=== PATIENT | male | born 1940 | race Caucasian/White ===

== ENCOUNTER → 2016-10-13 | Outpatient (CLI) | payer MEDICARE, OTHER ==
[~2016-10-13] MED LIST: [UNRECOGNIZED DRUG - OTHER]
== END | disposition home or self-care (01) ==
LOC: Rad HDHVI 13:42
PROVIDERS: ATTEND Internal Medicine Cardiovascular Disease
DX: I51.7 Cardiomegaly (principal); E78.00 Pure hypercholesterolemia, unspecified
CPT/HCPCS: 93306; 93880

== ENCOUNTER → 2016-10-19 | Outpatient (CLI) | payer MEDICARE, OTHER ==
[~2016-10-19] VITALS: Ht 175.3 cm; Wt 68.0 kg
[2016-10-19 09:57] LABS: Urine RBC None Seen /hpf (0 - 3)
[2016-10-19 12:25] LABS: Basophils # (auto) 0 uL; Basophils % (auto) 0.7 % (0.0-2.0); CONDITION Y; Eosinophils # (auto) 0.2 uL; Eosinophils % (auto) 3.3 % (0.0-7.0); Hemoglobin 14.6 g/dL (13.5-17.5); Lymphocytes # (auto) 1.6 uL; Lymphocytes % (auto) 21.4 % (10.0-50.0); Mean Corpuscular Hemoglobin 33.2 pg (28.0-32.0); Mean Corpuscular Hgb Conc. 33.8 g/dL (32.0-36.0); Mean Corpuscular Volume 98.4 fL (80.0-100.0); Mean Platelet Volume 9.5 fL (7.4-10.4); Monocytes # (auto) 0.7 uL; Monocytes % (auto) 9.3 % (0.0-12.0); Neutrophils # (auto) 4.8 uL; Neutrophils % (auto) 65.3 % (37.0-80.0); Platelet Count (auto) 287 10^3/uL (140-450); Red Cell Distribution Width 13.1 % (11.6-16.0); White Blood Cell 7.3 10^3/uL (4.4-10.8)
[2016-10-19 13:02] LABS: Albumin 3.4 g/dL (3.4-5.0); BUN/Creatinine Ratio 20.3; Bilirubin, Total 0.5 mg/dL (0.2-1.0); Calcium 9.3 mg/dL (8.5-10.1); Potassium 4.4 mmol/L (3.5-5.1); Total Protein 7.4 g/dL (6.4-8.2)
[2016-10-19 13:39] LABS: Urine Bilirubin Negative (Negative); Urine Blood Negative /uL (Negative); Urine Color Yellow (Yellow); Urine Glucose Normal (Normal); Urine Ketone Negative (Negative); Urine Nitrite Negative (Negative); Urine Squamous Epithelial Cell FEW /hpf (<5); Urine Urobilinogen Normal (Negative); Urine pH 6.5 (5.0-8.0)
== END | disposition home or self-care (01) ==
LOC: Rad HDHVI 07:58
PROVIDERS: ATTEND Internal Medicine Cardiovascular Disease
DX: I10 Essential (primary) hypertension (principal); E78.00 Pure hypercholesterolemia, unspecified; E11.9 Type 2 diabetes mellitus without complications; R97.20 Elevated prostate specific antigen [PSA]; R53.81 Other malaise; E03.9 Hypothyroidism, unspecified; D64.9 Anemia, unspecified; E55.9 Vitamin D deficiency, unspecified; N39.0 Urinary tract infection, site not specified; D51.9 Vitamin B12 deficiency anemia, unspecified; K74.1 Hepatic sclerosis
CPT/HCPCS: 36415; 78452; 80053; 80061; 81001; 82306; 82607; 83036; 84402; 84403; 84439; 84443; 85025; 93017; 96374; A9500

== ENCOUNTER → 2017-06-30 | Outpatient (CLI) | payer MEDICARE ==
[~2017-06-30] MED LIST changes: +IOHEXOL 350 MG/ML 100ML IJ ONE
[2017-06-30 08:45] VITALS: BP 119/60
[2017-06-30 09:25] VITALS: BP 132/59
[2017-06-30 12:24] LABS: Basophils # (auto) 0 uL; Basophils % (auto) 0.7 % (0.0-2.0); Eosinophils # (auto) 0.2 uL; Eosinophils % (auto) 3.4 % (0.0-7.0); Hematocrit 45.2 % (41.0-53.0); Hemoglobin 15.3 g/dL (13.5-17.5); Lymphocytes # (auto) 1.5 uL; Lymphocytes % (auto) 25.8 % (10.0-50.0); Mean Corpuscular Hemoglobin 33.5 pg (28.0-32.0); Mean Corpuscular Hgb Conc. 33.8 g/dL (32.0-36.0); Mean Corpuscular Volume 99.1 fL (80.0-100.0); Monocytes # (auto) 0.7 uL; Monocytes % (auto) 11.3 % (0.0-12.0); Neutrophils # (auto) 3.4 uL; Neutrophils % (auto) 58.8 % (37.0-80.0); Nucleated Red Blood Cells % 0.7 %; Platelet Count (auto) 247 10^3/uL (140-450); Red Blood Cells 4.56 10^6/uL (4.5-5.90); Red Cell Distribution Width 13.1 % (11.8-14.3); White Blood Cell 5.8 10^3/uL (4.4-10.8)
[2017-06-30 12:29] LABS: Urine Blood Negative /uL (Negative)
[2017-06-30 12:42] LABS: Albumin 3.4 g/dL (3.4-5.0); BUN/Creatinine Ratio 16.1; Bilirubin, Total 0.5 mg/dL (0.2-1.0); Calcium 8.1 mg/dL (8.5-10.1); Potassium 4.4 mmol/L (3.5-5.1); Total Protein 7.5 g/dL (6.4-8.2)
[2017-06-30 13:07] LABS: Free T4 (Free Thyroxine) 1.08 ng/dL (0.89-1.76); Prostate Specific Antigen 0.61 ng/mL (0.0-4.0)
== END | disposition home or self-care (01) ==
LOC: Rad HDHVI 08:20
PROVIDERS: ATTEND Internal Medicine Cardiovascular Disease
DX: I70.0 Atherosclerosis of aorta (principal); E78.5 Hyperlipidemia, unspecified; D64.9 Anemia, unspecified; I10 Essential (primary) hypertension; E03.9 Hypothyroidism, unspecified; E55.9 Vitamin D deficiency, unspecified; E11.9 Type 2 diabetes mellitus without complications; R53.81 Other malaise; R97.20 Elevated prostate specific antigen [PSA]; D51.9 Vitamin B12 deficiency anemia, unspecified; N39.0 Urinary tract infection, site not specified; K74.1 Hepatic sclerosis
CPT/HCPCS: 36415; 75635; 80053; 80061; 81003; 82306; 82565; 82607; 83036; 84153; 84403; 84439; 84443; 85025; G0463; Q9967

== ENCOUNTER → 2018-05-30 | Outpatient (CLI) | payer MEDICARE ==
[~2018-05-30] MED LIST changes: -IOHEXOL 350 MG/ML 100ML IJ ONE
[2018-05-30 12:10] LABS: Urine Blood Negative /uL (Negative); Urine Specific Gravity 1.007 (1.001-1.035)
[2018-05-30 12:11] LABS: Basophils # (auto) 0 uL; Basophils % (auto) 0.5 % (0.0-2.0); Eosinophils # (auto) 0.2 uL; Eosinophils % (auto) 2.7 % (0.0-7.0); Hematocrit 48.8 % (41.0-53.0); Hemoglobin 16.6 g/dL (13.5-17.5); Lymphocytes # (auto) 1.9 uL; Lymphocytes % (auto) 28.1 % (10.0-50.0); Mean Corpuscular Hemoglobin 33.6 pg (28.0-32.0); Mean Corpuscular Volume 98.6 fL (80.0-100.0); Monocytes # (auto) 0.9 uL; Monocytes % (auto) 12.6 % (0.0-12.0); Neutrophils # (auto) 3.8 uL; Neutrophils % (auto) 56.1 % (37.0-80.0); Nucleated Red Blood Cells % 0.7 %; Platelet Count (auto) 297 10^3/uL (140-450); Red Blood Cells 4.95 10^6/uL (4.5-5.90); White Blood Cell 6.8 10^3/uL (4.4-10.8)
[2018-05-30 12:25] LABS: Potassium 4.2 mmol/L (3.5-5.1)
[2018-05-30 12:37] LABS: Albumin 3.9 g/dL (3.4-5.0); Bilirubin, Total 0.7 mg/dL (0.2-1.0); Total Protein 8.4 g/dL (6.4-8.2)
[2018-05-30 12:38] LABS: Free T4 (Free Thyroxine) 1.47 ng/dL (0.89-1.76); Prostate Specific Antigen 0.83 ng/mL (0.0-4.0)
== END | disposition home or self-care (01) ==
LOC: LAB 08:42
PROVIDERS: ATTEND Internal Medicine Cardiovascular Disease
DX: E55.9 Vitamin D deficiency, unspecified (principal); E03.9 Hypothyroidism, unspecified; E11.9 Type 2 diabetes mellitus without complications; C61 Malignant neoplasm of prostate; E29.1 Testicular hypofunction; D51.9 Vitamin B12 deficiency anemia, unspecified; N39.0 Urinary tract infection, site not specified
CPT/HCPCS: 36415; 80053; 80061; 81003; 82306; 82607; 83036; 84153; 84403; 84439; 84443; 85025; 87086

== ENCOUNTER 2019-04-18 18:51 | Emergency (ER) | payer MEDICARE ==
[~2019-04-18] VITALS: Ht 175.3 cm; Wt 63.5 kg
[2019-04-18 21:49] VITALS: BP 140/76
== END 2019-04-18 21:57 | disposition home or self-care (01) ==
LOC: ER 18:51
DX: M19.011 Primary osteoarthritis, right shoulder (principal); Z91.041 Radiographic dye allergy status
CPT/HCPCS: 73030

== ENCOUNTER → 2019-04-19 | Outpatient (CLI) | payer MEDICARE ==
[~2019-04-19] MED LIST changes: +KETOROLAC TROMETH 60MG/2ML VIAL IM ONE; +KETOROLAC TROMETH 60MG/2ML VIAL ONE
[2019-04-19 09:00] VITALS: BP 120/64
[2019-04-19 10:01] VITALS: BP 130/64
--- NOTE | 2019-04-19 10:01 | NUR ---
[facility] Discharge Instructions See e-MAR for any mediations given with this visit. Patient education given on disease process. Patient verbalized understanding. Previous labs reviewed. Patient discharged in stable condition with after care instructions and follow up appointment. NOTE TORADOL IM R GLUTE ADMIN BY MEG CROSS. EKG REVIEWED BY TRENTON MILAN
[2019-04-19 12:17] LABS: Albumin 3.5 g/dL (3.4-5.0); Calcium 9.5 mg/dL (8.5-10.1); Magnesium 2.6 mg/dL (1.6-2.6); Potassium 4.4 mmol/L (3.5-5.1)
[2019-04-19 12:20] LABS: BUN/Creatinine Ratio 15.8; Bilirubin, Total 0.4 mg/dL (0.2-1.0); Total Protein 8.1 g/dL (6.4-8.2)
[2019-04-19 12:22] LABS: Basophils # (auto) 0.1 uL; Basophils % (auto) 0.9 % (0.0-2.0); Eosinophils # (auto) 0.3 uL; Eosinophils % (auto) 5.1 % (0.0-7.0); Hemoglobin 16.4 g/dL (13.5-17.5); Lymphocytes # (auto) 1.6 uL; Lymphocytes % (auto) 24.8 % (10.0-50.0); Mean Corpuscular Hemoglobin 33.6 pg (28.0-32.0); Mean Corpuscular Hgb Conc. 34.2 g/dL (32.0-36.0); Mean Corpuscular Volume 98.1 fL (80.0-100.0); Monocytes % (auto) 14.8 % (0.0-12.0); Neutrophils # (auto) 3.5 uL; Neutrophils % (auto) 54.4 % (37.0-80.0); Nucleated Red Blood Cells % 0.2 %; Platelet Count (auto) 245 10^3/uL (140-450); Red Blood Cells 4.89 10^6/uL (4.5-5.90); Red Cell Distribution Width 12.9 % (11.8-14.3); White Blood Cell 6.5 10^3/uL (4.4-10.8)
== END | disposition home or self-care (01) ==
LOC: CHF HDHVI 09:03
PROVIDERS: ATTEND Internal Medicine Cardiovascular Disease
DX: R07.89 Other chest pain (principal); M25.511 Pain in right shoulder; I50.9 Heart failure, unspecified; M19.011 Primary osteoarthritis, right shoulder; E11.9 Type 2 diabetes mellitus without complications
CPT/HCPCS: 36415; 80053; 83735; 83880; 85025; 93005; 96372; G0463; J1885

== ENCOUNTER → 2019-05-22 | Outpatient (CLI) | payer MEDICARE ==
[~2019-05-22] MED LIST changes: -KETOROLAC TROMETH 60MG/2ML VIAL IM ONE; -KETOROLAC TROMETH 60MG/2ML VIAL ONE
== END | disposition home or self-care (01) ==
LOC: Rad HDHVI 10:26
PROVIDERS: ATTEND Internal Medicine Cardiovascular Disease
DX: M25.461 Effusion, right knee (principal); M25.561 Pain in right knee
CPT/HCPCS: 73700

== ENCOUNTER → 2019-09-01 | Outpatient (CLI) | payer MEDICARE ==
[~2019-09-01] MED LIST changes: +IOHEXOL 350 MG/ML 100ML IJ ONE
[2019-09-01 10:30] VITALS: BP 124/58
--- NOTE | 2019-09-01 10:30 | NUR ---
PT TO [facility]F CLINIC FOR CT PT ARRIVED TO [facility] FOR CT OF CHEST. PATIENT ALERT AND AWAKE WITH EVEN AND UNLABORED RESPIRATIONS, NO S/S SOB/DISTRESS AT THIS TIME. WILL CARRY OUT MD ORDERS.
--- NOTE | 2019-09-01 10:40 | NUR ---
IV insertion IV access obtained BY TRENTON MILAN, via clean sterile technique by inserting [20] gauge catheter at [L AC] after [1] attempt(s). IV secured properly. No trauma to site. Patient tolerated procedure well.
--- NOTE | 2019-09-01 12:10 | NUR ---
IV removal IV DC'd BY TRENTON MILAN with sterile technique, catheter fully intact. Pressure dressing applied to site. Patient tolerated procedure well.
[2019-09-01 12:26] VITALS: BP 111/49
--- NOTE | 2019-09-01 12:26 | NUR ---
[facility] Discharge Instructions See e-MAR for any mediations given with this visit. Patient education given on disease process. Patient verbalized understanding. Previous labs reviewed. Patient discharged in stable condition with after care instructions and follow up appointment. NOTES PT EDUCATED TO INCREASE ORAL HYDRATION OVER THE NEXT 24 HOURS. PT VERBALIZED UNDERSTANDING.
== END | disposition home or self-care (01) ==
LOC: Rad HDHVI 10:20
PROVIDERS: ATTEND Internal Medicine Cardiovascular Disease
DX: K57.10 Diverticulosis of small intestine without perforation or abscess without bleeding (principal); I25.10 Atherosclerotic heart disease of native coronary artery without angina pectoris; R94.4 Abnormal results of kidney function studies; R13.10 Dysphagia, unspecified; K21.9 Gastro-esophageal reflux disease without esophagitis; R06.00 Dyspnea, unspecified; M41.84 Other forms of scoliosis, thoracic region; M41.86 Other forms of scoliosis, lumbar region; M46.09 Spinal enthesopathy, multiple sites in spine
CPT/HCPCS: 36415; 71260; 82565; G0463; Q9967

== ENCOUNTER → 2020-08-05 | Outpatient (CLI) | payer MEDICARE ==
[~2020-08-05] MED LIST changes: -IOHEXOL 350 MG/ML 100ML IJ ONE
[2020-08-05 12:02] LABS: Basophils # (auto) 0.1 10 ^3/uL (0-0.2); Basophils % (auto) 0.8 % (0.0-2.0); Eosinophils # (auto) 0.2 10 ^3/uL (0-0.8); Eosinophils % (auto) 2.5 % (0.0-7.0); Hematocrit 43.1 % (41.0-53.0); Hemoglobin 14.7 g/dL (13.5-17.5); Lymphocytes # (auto) 2.3 10 ^3/uL (0.4-5.4); Lymphocytes % (auto) 29.9 % (10.0-50.0); Mean Corpuscular Hemoglobin 33.2 pg (28.0-32.0); Mean Corpuscular Hgb Conc. 34.1 g/dL (32.0-36.0); Mean Corpuscular Volume 97.5 fL (80.0-100.0); Monocytes # (auto) 0.8 10 ^3/uL (0-1.3); Monocytes % (auto) 10.5 % (0.0-12.0); Neutrophils # (auto) 4.4 10 ^3/uL (1.6-8.6); Neutrophils % (auto) 56.3 % (37.0-80.0); Nucleated Red Blood Cells % 0.1 %; Platelet Count (auto) 272 10^3/uL (140-450); Red Blood Cells 4.42 10^6/uL (4.5-5.90); Red Cell Distribution Width 12.7 % (11.8-14.3); White Blood Cell 7.8 10^3/uL (4.4-10.8)
[2020-08-05 12:08] LABS: Urine Blood Negative /uL (Negative); Urine Specific Gravity 1.018 (1.001-1.035)
[2020-08-05 12:33] LABS: Potassium 3.7 mmol/L (3.5-5.1)
[2020-08-05 12:46] LABS: Albumin 3.4 g/dL (3.4-5.0); BUN/Creatinine Ratio 20.4; Bilirubin, Direct 0.2 mg/dL (0-0.2); Bilirubin, Total 0.6 mg/dL (0.2-1.0); Calcium 8.8 mg/dL (8.5-10.1); Total Protein 7.5 g/dL (6.4-8.2)
== END | disposition home or self-care (01) ==
LOC: LAB 10:19
PROVIDERS: ATTEND Internal Medicine Cardiovascular Disease
DX: C61 Malignant neoplasm of prostate (principal); D51.3 Other dietary vitamin B12 deficiency anemia; I10 Essential (primary) hypertension; E11.9 Type 2 diabetes mellitus without complications; E55.9 Vitamin D deficiency, unspecified; D64.9 Anemia, unspecified; R00.2 Palpitations; R53.1 Weakness; R30.0 Dysuria
CPT/HCPCS: 36415; 80048; 80061; 80076; 81003; 82306; 83036; 84153; 84403; 84443; 85025

== ENCOUNTER → 2020-08-07 | Outpatient (CLI) | payer MEDICARE | END | disposition home or self-care (01) | LOC: Rad HDHVI 09:45 | PROVIDERS: ATTEND Internal Medicine Cardiovascular Disease | DX: I65.21 Occlusion and stenosis of right carotid artery (principal); I10 Essential (primary) hypertension; E78.5 Hyperlipidemia, unspecified | CPT/HCPCS: 93880 ==

== ENCOUNTER → 2020-08-26 | Outpatient (CLI) | payer MEDICARE ==
[~2020-08-26] VITALS: Ht 175.3 cm; Wt 65.8 kg
== END | disposition home or self-care (01) ==
LOC: Rad HDHVI 12:39
PROVIDERS: ATTEND Internal Medicine Cardiovascular Disease
DX: I10 Essential (primary) hypertension (principal); I73.9 Peripheral vascular disease, unspecified; E78.5 Hyperlipidemia, unspecified; Z82.49 Family history of ischemic heart disease and other diseases of the circulatory system
CPT/HCPCS: 78452; 93017; 96374; A9500

== ENCOUNTER → 2021-10-01 | Outpatient (CLI) | payer MEDICARE ==
[2021-10-01 11:50] LABS: Eosinophils # (auto) 0.1 10 ^3/uL (0-0.8); Hematocrit 50.3 % (41.0-53.0); Lymphocytes # (auto) 1.6 10 ^3/uL (0.4-5.4); Mean Corpuscular Hgb Conc. 33.1 g/dL (32.0-36.0); Monocytes # (auto) 0.9 10 ^3/uL (0-1.3); Neutrophils # (auto) 4.1 10 ^3/uL (1.6-8.6); Nucleated Red Blood Cells % 0.1 %; Urine Blood Negative /uL (Negative); Urine Specific Gravity 1.015 (1.001-1.035); White Blood Cell 6.7 10^3/uL (4.4-10.8)
[2021-10-01 11:52] LABS: Basophils # (auto) 0 10 ^3/uL (0-0.2); Basophils % (auto) 0.6 % (0.0-2.0); Eosinophils % (auto) 1.8 % (0.0-7.0); Hemoglobin 16.6 g/dL (13.5-17.5); Lymphocytes % (auto) 23.5 % (10.0-50.0); Mean Corpuscular Hemoglobin 33.7 pg (28.0-32.0); Monocytes % (auto) 13.5 % (0.0-12.0); Neutrophils % (auto) 60.6 % (37.0-80.0); Red Blood Cells 4.93 10^6/uL (4.5-5.90); Red Cell Distribution Width 13.2 % (11.8-14.3)
[2021-10-01 12:01] LABS: Albumin 3.2 g/dL (3.4-5.0); Calcium 8.9 mg/dL (8.5-10.1); Potassium 4.4 mmol/L (3.5-5.1)
[2021-10-01 12:06] LABS: BUN/Creatinine Ratio 15.3; Bilirubin, Total 0.8 mg/dL (0.2-1.0); Total Protein 7.3 g/dL (6.4-8.2)
[2021-10-01 12:50] LABS: Free T4 (Free Thyroxine) 1.38 ng/dL (0.89-1.76); Prostate Specific Antigen 1.18 ng/mL (0.0-4.0)
== END | disposition home or self-care (01) ==
LOC: LAB 10:37
PROVIDERS: ATTEND Internal Medicine Cardiovascular Disease
DX: D51.3 Other dietary vitamin B12 deficiency anemia (principal); D64.9 Anemia, unspecified; E11.9 Type 2 diabetes mellitus without complications; E55.9 Vitamin D deficiency, unspecified; I10 Essential (primary) hypertension; R00.2 Palpitations; R53.1 Weakness; R30.0 Dysuria; C61 Malignant neoplasm of prostate
CPT/HCPCS: 36415; 80053; 80061; 81003; 82306; 82607; 83036; 84153; 84403; 84439; 84443; 85025

== ENCOUNTER → 2021-10-13 | Outpatient (CLI) | payer MEDICARE | END | disposition home or self-care (01) | LOC: Rad HDHVI 10:42 | PROVIDERS: ATTEND Internal Medicine Cardiovascular Disease | DX: I08.1 Rheumatic disorders of both mitral and tricuspid valves (principal); I10 Essential (primary) hypertension; R06.02 Shortness of breath | CPT/HCPCS: 93306 ==

== ENCOUNTER → 2021-10-20 | Outpatient (CLI) | payer MEDICARE | END | disposition home or self-care (01) | LOC: Rad HDHVI 09:04 | PROVIDERS: ATTEND Internal Medicine Cardiovascular Disease | DX: I65.21 Occlusion and stenosis of right carotid artery (principal); I73.9 Peripheral vascular disease, unspecified; I10 Essential (primary) hypertension | CPT/HCPCS: 93880 ==

== ENCOUNTER → 2022-07-06 | Outpatient (CLI) | payer MEDICARE | END | disposition home or self-care (01) | LOC: Rad HDHVI 10:40 | PROVIDERS: ATTEND Internal Medicine Cardiovascular Disease | DX: R06.02 Shortness of breath (principal) | CPT/HCPCS: 71046 ==

== ENCOUNTER → 2022-07-14 | Outpatient (CLI) | payer MEDICARE | END | disposition home or self-care (01) | LOC: Rad HDHVI 07:56 | PROVIDERS: ATTEND Internal Medicine Cardiovascular Disease | DX: I08.1 Rheumatic disorders of both mitral and tricuspid valves (principal); I11.9 Hypertensive heart disease without heart failure | CPT/HCPCS: 93306 ==

== ENCOUNTER → 2023-09-27 | Outpatient (CLI) | payer MEDICARE | END | disposition home or self-care (01) | LOC: Rad HDHVI 15:16 | PROVIDERS: ATTEND Internal Medicine Cardiovascular Disease | DX: I10 Essential (primary) hypertension (principal) | CPT/HCPCS: 93880 ==

== ENCOUNTER → 2023-11-01 | Outpatient (CLI) | payer MEDICARE | END | disposition home or self-care (01) | LOC: Rad HDHVI 12:21 | PROVIDERS: ATTEND Internal Medicine Cardiovascular Disease | DX: R41.82 Altered mental status, unspecified (principal) | CPT/HCPCS: 70450 ==

== ENCOUNTER → 2023-11-17 | Outpatient (CLI) | payer MEDICARE ==
[2023-11-17 16:31] VITALS: BP 138/84; PULSE 76
[2023-11-17 16:40] VITALS: BP 131/82; PULSE 84
== END | disposition home or self-care (01) ==
LOC: CHF HDHVI 15:16
PROVIDERS: ATTEND Internal Medicine Cardiovascular Disease
DX: I25.118 Atherosclerotic heart disease of native coronary artery with other forms of angina pectoris (principal); Z95.818 Presence of other cardiac implants and grafts
CPT/HCPCS: G0166

== ENCOUNTER → 2023-11-22 | Outpatient (CLI) | payer MEDICARE ==
[2023-11-22 16:44] VITALS: BP 138/80; PULSE 63
[2023-11-22 16:45] VITALS: BP 133/83; PULSE 74
== END | disposition home or self-care (01) ==
LOC: CHF HDHVI 15:13
PROVIDERS: ATTEND Internal Medicine Cardiovascular Disease
DX: I25.118 Atherosclerotic heart disease of native coronary artery with other forms of angina pectoris (principal)
CPT/HCPCS: G0166

== ENCOUNTER → 2023-11-24 | Outpatient (CLI) | payer MEDICARE ==
[2023-11-24 16:20] VITALS: BP 123/88; PULSE 85
[2023-11-24 16:32] VITALS: BP 123/79; PULSE 79
== END | disposition home or self-care (01) ==
LOC: CHF HDHVI 15:19
PROVIDERS: ATTEND Internal Medicine Cardiovascular Disease
DX: I25.118 Atherosclerotic heart disease of native coronary artery with other forms of angina pectoris (principal)
CPT/HCPCS: G0166

== ENCOUNTER → 2023-11-29 | Outpatient (CLI) | payer MEDICARE ==
[2023-11-29 16:29] VITALS: BP 126/70; PULSE 75
[2023-11-29 16:37] VITALS: BP 126/80; PULSE 77
== END | disposition home or self-care (01) ==
LOC: CHF HDHVI 15:20
PROVIDERS: ATTEND Internal Medicine Cardiovascular Disease
DX: I25.118 Atherosclerotic heart disease of native coronary artery with other forms of angina pectoris (principal)
CPT/HCPCS: G0166

== ENCOUNTER → 2023-12-01 | Outpatient (CLI) | payer MEDICARE ==
[2023-12-01 16:20] VITALS: BP 126/79; PULSE 67
[2023-12-01 16:27] VITALS: BP 122/77; PULSE 68
== END | disposition home or self-care (01) ==
LOC: CHF HDHVI 15:15
PROVIDERS: ATTEND Internal Medicine Cardiovascular Disease
DX: I25.118 Atherosclerotic heart disease of native coronary artery with other forms of angina pectoris (principal)
CPT/HCPCS: G0166

== ENCOUNTER → 2023-12-15 | Outpatient (CLI) | payer MEDICARE ==
[2023-12-15 16:41] VITALS: BP_SYST 129; BP_SYST 132; BP_DIAS 80; BP_DIAS 82; PULSE 73; PULSE 79
== END | disposition home or self-care (01) ==
LOC: CHF HDHVI 15:14
PROVIDERS: ATTEND Internal Medicine Cardiovascular Disease
DX: I25.118 Atherosclerotic heart disease of native coronary artery with other forms of angina pectoris (principal); Z95.820 Peripheral vascular angioplasty status with implants and grafts
CPT/HCPCS: G0166

== ENCOUNTER → 2023-12-27 | Outpatient (CLI) | payer MEDICARE ==
[2023-12-27 15:55] VITALS: BP 128/83; PULSE 86
[2023-12-27 15:59] VITALS: BP 130/81; PULSE 85
== END | disposition home or self-care (01) ==
LOC: CHF HDHVI 14:32
PROVIDERS: ATTEND Internal Medicine Cardiovascular Disease
DX: I25.118 Atherosclerotic heart disease of native coronary artery with other forms of angina pectoris (principal)
CPT/HCPCS: G0166

== ENCOUNTER → 2023-12-29 | Outpatient (CLI) | payer MEDICARE ==
[2023-12-29 16:02] VITALS: BP_SYST 126; BP_SYST 128; BP_DIAS 75; BP_DIAS 78; PULSE 75; PULSE 87
== END | disposition home or self-care (01) ==
LOC: CHF HDHVI 14:50
PROVIDERS: ATTEND Internal Medicine Cardiovascular Disease
DX: I25.118 Atherosclerotic heart disease of native coronary artery with other forms of angina pectoris (principal)
CPT/HCPCS: G0166

== ENCOUNTER → 2024-01-03 | Outpatient (CLI) | payer MEDICARE ==
[2024-01-03 16:12] VITALS: BP 138/88; PULSE 76
[2024-01-03 16:13] VITALS: BP 142/81; PULSE 67
[2024-01-05 16:33] VITALS: BP 139/89; PULSE 84
[2024-01-05 16:34] VITALS: BP 130/80; PULSE 86
[2024-01-06 09:09] VITALS: BP 138/88; PULSE 76
[2024-01-06 09:10] VITALS: BP 142/81; PULSE 67
== END | disposition home or self-care (01) ==
LOC: CHF HDHVI 15:04
PROVIDERS: ATTEND Internal Medicine Cardiovascular Disease
DX: I25.118 Atherosclerotic heart disease of native coronary artery with other forms of angina pectoris (principal)
CPT/HCPCS: G0166

== ENCOUNTER → 2024-01-05 | Outpatient (CLI) | payer MEDICARE ==
[2024-01-05 16:39] VITALS: BP_SYST 130; BP_SYST 139; BP_DIAS 80; BP_DIAS 89; PULSE 84; PULSE 86
== END | disposition home or self-care (01) ==
LOC: CHF HDHVI 15:19
PROVIDERS: ATTEND Internal Medicine Cardiovascular Disease
DX: I25.118 Atherosclerotic heart disease of native coronary artery with other forms of angina pectoris (principal)
CPT/HCPCS: G0166

== ENCOUNTER → 2024-01-10 | Outpatient (CLI) | payer MEDICARE ==
[2024-01-10 16:17] VITALS: BP 122/80; PULSE 87
[2024-01-10 16:18] VITALS: BP 131/81; PULSE 76
== END | disposition home or self-care (01) ==
LOC: CHF HDHVI 14:50
PROVIDERS: ATTEND Internal Medicine Cardiovascular Disease
DX: I25.118 Atherosclerotic heart disease of native coronary artery with other forms of angina pectoris (principal)
CPT/HCPCS: G0166

== ENCOUNTER → 2024-01-17 | Outpatient (CLI) | payer MEDICARE ==
[2024-01-17 16:08] VITALS: BP 138/83; PULSE 76
[2024-01-17 16:09] VITALS: BP 140/86; PULSE 74
== END | disposition home or self-care (01) ==
LOC: CHF HDHVI 14:47
PROVIDERS: ATTEND Internal Medicine Cardiovascular Disease
DX: I25.118 Atherosclerotic heart disease of native coronary artery with other forms of angina pectoris (principal)
CPT/HCPCS: G0166

== ENCOUNTER → 2024-01-24 | Outpatient (CLI) | payer MEDICARE ==
[2024-01-24 16:06] VITALS: BP_SYST 133; BP_SYST 135; BP_DIAS 76; BP_DIAS 82; PULSE 76; PULSE 81
== END | disposition home or self-care (01) ==
LOC: CHF HDHVI 14:39
PROVIDERS: ATTEND Internal Medicine Cardiovascular Disease
DX: I25.118 Atherosclerotic heart disease of native coronary artery with other forms of angina pectoris (principal); Z95.9 Presence of cardiac and vascular implant and graft, unspecified
CPT/HCPCS: G0166

== ENCOUNTER → 2024-01-26 | Outpatient (CLI) | payer MEDICARE ==
[2024-01-26 15:19] VITALS: BP 138/78; PULSE 74
[2024-01-26 15:20] VITALS: BP 133/85; PULSE 87
== END | disposition home or self-care (01) ==
LOC: CHF HDHVI 13:34
PROVIDERS: ATTEND Internal Medicine Cardiovascular Disease
DX: I25.118 Atherosclerotic heart disease of native coronary artery with other forms of angina pectoris (principal); Z95.9 Presence of cardiac and vascular implant and graft, unspecified
CPT/HCPCS: G0166

== ENCOUNTER 2024-01-27 09:03 | Emergency (ER) | payer MEDICARE ==
[~2024-01-27] VITALS: Ht 177.8 cm; Wt 68.1 kg
[2024-01-27 09:46] LABS: Basophils # (auto) 0.1 10 ^3/uL (0-0.2); Basophils % (auto) 0.8 % (0.0-2.0); Eosinophils # (auto) 0.2 10 ^3/uL (0-0.8); Eosinophils % (auto) 2.2 % (0.0-7.0); Hematocrit 49.5 % (41.0-53.0); Hemoglobin 16.6 g/dL (13.5-17.5); Lymphocytes # (auto) 1.6 10 ^3/uL (0.4-5.4); Lymphocytes % (auto) 16.7 % (10.0-50.0); Mean Corpuscular Hemoglobin 32.7 pg (28.0-32.0); Mean Corpuscular Hgb Conc. 33.6 g/dL (32.0-36.0); Mean Corpuscular Volume 97.3 fL (80.0-100.0); Monocytes # (auto) 1.4 10 ^3/uL (0-1.3); Monocytes % (auto) 14.7 % (0.0-12.0); Neutrophils # (auto) 6.4 10 ^3/uL (1.6-8.6); Neutrophils % (auto) 65.6 % (37.0-80.0); Nucleated Red Blood Cells % 0.1 %; Platelet Count (auto) 256 10^3/uL (140-450); Red Blood Cells 5.09 10^6/uL (4.5-5.90); Red Cell Distribution Width 14.7 % (11.8-14.3); White Blood Cell 9.8 10^3/uL (4.4-10.8)
[2024-01-27 09:53] LABS: Anion Gap 5 (5-15); Carbon Dioxide 31 mmol/L (20-31); Chloride 101 mmol/L (98-107); Potassium 4.7 mmol/L (3.5-5.1); Sodium 137 mmol/L (136-145)
[2024-01-27 09:54] LABS: Calcium 10.3 mg/dL (8.7-10.4)
[2024-01-27 09:59] LABS: BUN/Creatinine Ratio 15.1 (10.0-20.0); Blood Urea Nitrogen 19 mg/dL (9-23); Glucose 88 mg/dL (74-106)
[2024-01-27 10:38] LABS: Urine Bacteria None Seen /hpf (None Seen)
[2024-01-27 10:50] VITALS: PULSE 73; RESP 16; O2SAT 97
[2024-01-27 10:55] LABS: Urine Blood Negative /uL (Negative); Urine Clarity Clear (Clear); Urine Color Yellow (Yellow); Urine Protein, UAD Negative (Negative); Urine Specific Gravity 1.012 (1.001-1.035); Urine Urobilinogen Normal (Negative); Urine WBC <1 /hpf (0 - 3); Urine pH 7.5 (5.0-9.0)
[2024-01-27 10:57] LABS: Amphetamine Screen, Urine Neg (NEGATIVE); Barbiturate Scree,Urine Neg (NEGATIVE); Benzodiazephine Screen, Urine Neg (NEGATIVE); Cannabinoid Screen, Urine Neg (NEGATIVE); Cocaine Screen, Urine Neg (NEGATIVE); Opiate Scree,Urine Neg (NEGATIVE); Phencyclidine Screen, Urine Neg (NEGATIVE)
[2024-01-27 12:17] VITALS: BP 132/65; PULSE 70; RESP 18; TEMP 97.5; O2SAT 100
[2024-01-27 16:22] VITALS: BP 129/61; PULSE 62; RESP 18; TEMP 97.7; O2SAT 98
== END 2024-01-27 16:34 | disposition home or self-care (01) ==
LOC: ER 09:03
DX: G45.9 Transient cerebral ischemic attack, unspecified (principal); I48.91 Unspecified atrial fibrillation; I10 Essential (primary) hypertension; E07.9 Disorder of thyroid, unspecified; Z91.041 Radiographic dye allergy status; Z79.899 Other long term (current) drug therapy
CPT/HCPCS: 36415; 70450; 80048; 80307; 80320; 81001; 82962; 84484; 85025; 93005

== ENCOUNTER → 2024-01-31 | Outpatient (CLI) | payer MEDICARE ==
[2024-01-31 14:42] VITALS: BP 128/79; PULSE 70
[2024-01-31 14:45] VITALS: BP 130/81; PULSE 88
== END | disposition home or self-care (01) ==
LOC: CHF HDHVI 11:01
PROVIDERS: ATTEND Internal Medicine Cardiovascular Disease
DX: I25.118 Atherosclerotic heart disease of native coronary artery with other forms of angina pectoris (principal)
CPT/HCPCS: G0166

== ENCOUNTER → 2024-02-07 | Outpatient (CLI) | payer MEDICARE ==
[2024-02-07 16:06] VITALS: BP 129/86; PULSE 67
[2024-02-07 16:07] VITALS: BP 122/86; PULSE 84
== END | disposition home or self-care (01) ==
LOC: CHF HDHVI 14:40
PROVIDERS: ATTEND Internal Medicine Cardiovascular Disease
DX: I25.118 Atherosclerotic heart disease of native coronary artery with other forms of angina pectoris (principal)
CPT/HCPCS: G0166

== ENCOUNTER → 2024-02-09 | Outpatient (CLI) | payer MEDICARE ==
[2024-02-09 16:11] VITALS: BP 128/78; PULSE 84
[2024-02-09 16:12] VITALS: BP 131/80; PULSE 78
== END | disposition home or self-care (01) ==
LOC: CHF HDHVI 14:58
PROVIDERS: ATTEND Internal Medicine Cardiovascular Disease
DX: I25.118 Atherosclerotic heart disease of native coronary artery with other forms of angina pectoris (principal)
CPT/HCPCS: G0166

== ENCOUNTER → 2024-02-16 | Outpatient (CLI) | payer MEDICARE ==
[2024-02-16 16:07] VITALS: BP 136/88; PULSE 79
[2024-02-16 16:08] VITALS: BP 138/84; PULSE 80
== END | disposition home or self-care (01) ==
LOC: CHF HDHVI 14:21
PROVIDERS: ATTEND Internal Medicine Cardiovascular Disease
DX: I25.118 Atherosclerotic heart disease of native coronary artery with other forms of angina pectoris (principal)
CPT/HCPCS: G0166

== ENCOUNTER → 2024-02-21 | Outpatient (CLI) | payer MEDICARE ==
[2024-02-21 14:50] VITALS: BP 126/82; PULSE 80
[2024-02-21 14:58] VITALS: BP 128/78; PULSE 87
== END | disposition home or self-care (01) ==
LOC: CHF HDHVI 13:43
PROVIDERS: ATTEND Internal Medicine Cardiovascular Disease
DX: I25.118 Atherosclerotic heart disease of native coronary artery with other forms of angina pectoris (principal); I25.5 Ischemic cardiomyopathy; I50.42 Chronic combined systolic (congestive) and diastolic (congestive) heart failure; R06.02 Shortness of breath; Z95.9 Presence of cardiac and vascular implant and graft, unspecified
CPT/HCPCS: G0166

== ENCOUNTER → 2024-02-23 | Outpatient (CLI) | payer MEDICARE ==
[2024-02-23 16:12] VITALS: BP_SYST 130; BP_SYST 135; BP_DIAS 71; BP_DIAS 79; PULSE 73; PULSE 83
== END | disposition home or self-care (01) ==
LOC: CHF HDHVI 14:48
PROVIDERS: ATTEND Internal Medicine Cardiovascular Disease
DX: I25.118 Atherosclerotic heart disease of native coronary artery with other forms of angina pectoris (principal)
CPT/HCPCS: G0166

== ENCOUNTER → 2024-02-28 | Outpatient (CLI) | payer MEDICARE ==
[2024-02-28 16:02] VITALS: BP 128/84; PULSE 79
[2024-02-28 16:03] VITALS: BP 127/74; PULSE 83
== END | disposition home or self-care (01) ==
LOC: CHF HDHVI 13:45
PROVIDERS: ATTEND Internal Medicine Cardiovascular Disease
DX: I25.118 Atherosclerotic heart disease of native coronary artery with other forms of angina pectoris (principal)
CPT/HCPCS: G0166

== ENCOUNTER → 2024-03-08 | Outpatient (CLI) | payer MEDICARE ==
[2024-03-08 10:25] LABS: Basophils # (auto) 0.1 10 ^3/uL (0-0.2); Basophils % (auto) 0.8 % (0.0-2.0); Eosinophils # (auto) 0.3 10 ^3/uL (0-0.8); Hemoglobin 15.8 g/dL (13.5-17.5); Lymphocytes # (auto) 1.3 10 ^3/uL (0.4-5.4); Lymphocytes % (auto) 19.6 % (10.0-50.0); Mean Corpuscular Hemoglobin 32.2 pg (28.0-32.0); Mean Corpuscular Hgb Conc. 33.6 g/dL (32.0-36.0); Mean Corpuscular Volume 96.1 fL (80.0-100.0); Monocytes # (auto) 0.9 10 ^3/uL (0-1.3); Monocytes % (auto) 13.9 % (0.0-12.0); Neutrophils # (auto) 4.2 10 ^3/uL (1.6-8.6); Neutrophils % (auto) 61.7 % (37.0-80.0); Nucleated Red Blood Cells % 0.1 %; Platelet Count (auto) 227 10^3/uL (140-450); Red Blood Cells 4.89 10^6/uL (4.5-5.90); Red Cell Distribution Width 14.7 % (11.8-14.3); White Blood Cell 6.8 10^3/uL (4.4-10.8)
[2024-03-08 10:46] LABS: Urine Blood Negative /uL (Negative); Urine Clarity Clear (Clear); Urine Color Yellow (Yellow); Urine Protein, UAD Negative (Negative); Urine Specific Gravity 1.011 (1.001-1.035); Urine Urobilinogen Normal (Negative); Urine pH 7.5 (5.0-9.0)
[2024-03-08 11:02] LABS: Alanine Aminotransferase 26 U/L (7-40); Alkaline Phosphatase 50 U/L (46-116); Anion Gap 4 (5-15); BUN/Creatinine Ratio 15.1 (10.0-20.0); Blood Urea Nitrogen 18 mg/dL (9-23); Chloride 101 mmol/L (98-107); Glucose 96 mg/dL (74-106); Potassium 4.5 mmol/L (3.5-5.1); Sodium 137 mmol/L (136-145); Triglycerides 41 mg/dL (< 150)
[2024-03-08 11:03] LABS: Albumin 3.9 g/dL (3.2-4.8); Aspartate Aminotransferase 24 U/L (13-40); Bilirubin, Direct 0.3 mg/dL (<0.3); Cholesterol 184 mg/dL (< 200); HDL Cholesterol 60 mg/dL (40-59)
[2024-03-08 11:04] LABS: Bilirubin, Total 0.9 mg/dL (0.2-1.0); Total Protein 7.1 g/dL (5.7-8.2)
[2024-03-08 11:18] LABS: Carbon Dioxide 32 mmol/L (20-31); LDL Cholesterol 118 mg/dL (< 100)
== END | disposition home or self-care (01) ==
LOC: LAB 09:53
PROVIDERS: ATTEND Internal Medicine Cardiovascular Disease
DX: C61 Malignant neoplasm of prostate (principal); E11.9 Type 2 diabetes mellitus without complications; E55.9 Vitamin D deficiency, unspecified; R93.0 Abnormal findings on diagnostic imaging of skull and head, not elsewhere classified; D51.3 Other dietary vitamin B12 deficiency anemia; R53.1 Weakness
CPT/HCPCS: 36415; 80048; 80061; 80076; 81003; 83036; 84153; 84403; 84443; 85025

== ENCOUNTER → 2024-03-08 | Outpatient (CLI) | payer MEDICARE ==
[2024-03-08 15:28] VITALS: BP 140/94; PULSE 81
[2024-03-08 15:43] VITALS: BP 129/86; PULSE 69
== END | disposition home or self-care (01) ==
LOC: CHF HDHVI 14:45
PROVIDERS: ATTEND Internal Medicine Cardiovascular Disease
DX: I25.118 Atherosclerotic heart disease of native coronary artery with other forms of angina pectoris (principal)
CPT/HCPCS: G0166

== ENCOUNTER → 2024-03-13 | Outpatient (CLI) | payer MEDICARE ==
[2024-03-13 14:42] VITALS: BP 123/84; PULSE 83
[2024-03-13 14:55] VITALS: BP 126/86; PULSE 75
== END | disposition home or self-care (01) ==
LOC: CHF HDHVI 13:52
PROVIDERS: ATTEND Internal Medicine Cardiovascular Disease
DX: I25.118 Atherosclerotic heart disease of native coronary artery with other forms of angina pectoris (principal)
CPT/HCPCS: G0166

== ENCOUNTER → 2024-03-15 | Outpatient (CLI) | payer MEDICARE ==
[2024-03-15 16:10] VITALS: BP_SYST 128; BP_SYST 134; BP_DIAS 80; BP_DIAS 81; PULSE 73; PULSE 87
== END | disposition home or self-care (01) ==
LOC: CHF HDHVI 14:45
PROVIDERS: ATTEND Internal Medicine Cardiovascular Disease
DX: I25.118 Atherosclerotic heart disease of native coronary artery with other forms of angina pectoris (principal)
CPT/HCPCS: G0166

== ENCOUNTER → 2024-03-20 | Outpatient (CLI) | payer MEDICARE ==
[2024-03-20 14:47] VITALS: BP 134/81; PULSE 74
[2024-03-20 14:48] VITALS: BP 137/83; PULSE 80
== END | disposition home or self-care (01) ==
LOC: CHF HDHVI 13:17
PROVIDERS: ATTEND Internal Medicine Cardiovascular Disease
DX: I25.118 Atherosclerotic heart disease of native coronary artery with other forms of angina pectoris (principal); I48.20 Chronic atrial fibrillation, unspecified
CPT/HCPCS: G0166

== ENCOUNTER → 2024-03-22 | Outpatient (CLI) | payer MEDICARE ==
[2024-03-22 15:54] VITALS: BP 141/79; PULSE 67
[2024-03-22 15:55] VITALS: BP 137/76; PULSE 76
== END | disposition home or self-care (01) ==
LOC: CHF HDHVI 14:26
PROVIDERS: ATTEND Internal Medicine Cardiovascular Disease
DX: I25.118 Atherosclerotic heart disease of native coronary artery with other forms of angina pectoris (principal)
CPT/HCPCS: G0166

== ENCOUNTER → 2024-04-03 | Outpatient (CLI) | payer MEDICARE ==
[2024-04-03 16:13] VITALS: BP 132/84; PULSE 87
[2024-04-03 16:14] VITALS: BP 128/82; PULSE 82
== END | disposition home or self-care (01) ==
LOC: CHF HDHVI 14:50
PROVIDERS: ATTEND Internal Medicine Cardiovascular Disease
DX: I25.118 Atherosclerotic heart disease of native coronary artery with other forms of angina pectoris (principal); E78.5 Hyperlipidemia, unspecified; Z95.828 Presence of other vascular implants and grafts
CPT/HCPCS: G0166

== ENCOUNTER → 2024-04-10 | Outpatient (CLI) | payer MEDICARE ==
[2024-04-10 15:23] VITALS: BP 128/74; PULSE 77
[2024-04-10 15:24] VITALS: BP 122/75; PULSE 78
== END | disposition home or self-care (01) ==
LOC: CHF HDHVI 13:55
PROVIDERS: ATTEND Internal Medicine Cardiovascular Disease
DX: I25.118 Atherosclerotic heart disease of native coronary artery with other forms of angina pectoris (principal)
CPT/HCPCS: G0166

== ENCOUNTER → 2024-04-12 | Outpatient (CLI) | payer MEDICARE ==
[2024-04-12 15:45] VITALS: BP_SYST 134; BP_SYST 140; BP_DIAS 81; BP_DIAS 83; PULSE 75; PULSE 87
== END | disposition home or self-care (01) ==
LOC: CHF HDHVI 14:18
PROVIDERS: ATTEND Internal Medicine Cardiovascular Disease
DX: I25.118 Atherosclerotic heart disease of native coronary artery with other forms of angina pectoris (principal)
CPT/HCPCS: G0166

== ENCOUNTER → 2024-04-17 | Outpatient (CLI) | payer MEDICARE ==
[2024-04-17 10:43] VITALS: BP 131/83; PULSE 78; RESP 18; O2SAT 98
[2024-04-17] MEDS: MVI in SODIUM CHLORIDE 0.9% 500 ML IVB ONE (10:43)
[2024-04-17] MEDS: MULTIPLE VIT 10 ML IV ONE (10:54)
--- NOTE | 2024-04-17 12:18 | DVH ---
XY CHEST TWO VIEWS ROUTINE CLINICAL HISTORY: SOB COMPARISON: XY CHEST TWO VIEWS ROUTINE on DOS: 07/06/22 TECHNIQUE: Frontal and lateral view of the chest was obtained FINDINGS: Lines and Tubes: None Lungs: No focal consolidation. Pleura: No effusion. No pneumothorax. Cardiomediastinal contours: Unremarkable. Aortic atherosclerosis. Bones: No acute osseous abnormality. IMPRESSION: No acute cardiopulmonary disease.
[2024-04-17 13:06] VITALS: BP 164/88; PULSE 78; RESP 18; O2SAT 98
== END | disposition home or self-care (01) ==
LOC: Rad HDHVI 10:41
PROVIDERS: ATTEND Internal Medicine Cardiovascular Disease
DX: J06.9 Acute upper respiratory infection, unspecified (principal); E86.0 Dehydration; I25.10 Atherosclerotic heart disease of native coronary artery without angina pectoris; E78.5 Hyperlipidemia, unspecified; I48.20 Chronic atrial fibrillation, unspecified; E11.9 Type 2 diabetes mellitus without complications; Z85.46 Personal history of malignant neoplasm of prostate
CPT/HCPCS: 71046; 96365; 96366; G0463; J3411; J3475; J7040; 96360; 96361

== ENCOUNTER → 2024-04-25 | Outpatient (CLI) | payer MEDICARE ==
[2024-04-25 15:05] VITALS: BP 118/70; PULSE 94; RESP 18; O2SAT 99
[2024-04-25] MEDS: MVI in SODIUM CHLORIDE 0.9% 500 ML IVB ONE (15:05)
[2024-04-25] MEDS: MULTIPLE VIT 10 ML IV ONE (15:37)
[2024-04-25 17:18] VITALS: BP 133/66; PULSE 71; RESP 18; O2SAT 99
== END | disposition home or self-care (01) ==
LOC: CHF HDHVI 15:24
PROVIDERS: ATTEND Internal Medicine Cardiovascular Disease
DX: J06.9 Acute upper respiratory infection, unspecified (principal); E86.0 Dehydration; F10.90 Alcohol use, unspecified, uncomplicated; Y90.9 Presence of alcohol in blood, level not specified
CPT/HCPCS: 96365; 96366; G0463; J7040; 96360; 96361

== ENCOUNTER → 2024-05-08 | Outpatient (CLI) | payer MEDICARE ==
[2024-05-08 15:23] VITALS: BP 129/79; PULSE 79
[2024-05-08 15:26] VITALS: BP 130/84; PULSE 74
== END | disposition home or self-care (01) ==
LOC: CHF HDHVI 13:57
PROVIDERS: ATTEND Internal Medicine Cardiovascular Disease
DX: I25.118 Atherosclerotic heart disease of native coronary artery with other forms of angina pectoris (principal); N28.9 Disorder of kidney and ureter, unspecified; I48.91 Unspecified atrial fibrillation
CPT/HCPCS: G0166

== ENCOUNTER → 2024-06-07 | Outpatient (CLI) | payer MEDICARE ==
[2024-06-07 10:15] VITALS: BP 155/87; PULSE 86; RESP 16; O2SAT 98
[2024-06-07] MEDS: ENOXAPARIN SOD 30 MG/0.3 ML SYRINGE ONE (10:22)
[2024-06-07] MEDS: ENOXAPARIN SOD 30 MG/0.3 ML SYRINGE IV ONE (10:30)
--- NOTE | 2024-06-07 11:10 | DVH ---
EXAM: CT HEAD WITHOUT CONTRAST HISTORY: HEADACHES COMPARISON: CT HEAD WITHOUT CONTRAST on DOS: 01/27/24, CT HEAD WITHOUT CONTRAST on DOS: 11/01/23 TECHNIQUE: Axial images of the head were obtained and reformatted in coronal and sagittal planes. All CT scans at this medical facility are performed using dose modulation techniques as appropriate t o a performed exam including the following: Automated exposure control was utilized; adjustment of th e MA and/or KV according to patient size; and use of iterative reconstruction technique. CT Dose: CTDI volume is 53.62 mGy. Dose-length product is 965.16 mGy*cm FINDINGS: There is no evidence of acute intracranial hemorrhage, mass, mass effect midline shift. There is no h ydrocephalus or extra-axial fluid collection. Mukherjee-white matter differentiation is maintained. Ther e is mucosal thickening in the right maxillary sinus. The remaining visualized paranasal sinuses and mastoid air cells are clear. The calvarium is intact. IMPRESSION: 1. No acute intracranial process. HS:Y
[2024-06-07] MEDS: TESTOSTERONE CYPIONATE 200 MG/ML 1ML VIAL IM ONE ×2 (11:24)
[2024-06-07 11:30] VITALS: BP 145/77; PULSE 83; RESP 16; O2SAT 98
== END | disposition home or self-care (01) ==
LOC: Rad HDHVI 09:44
PROVIDERS: ATTEND Internal Medicine Cardiovascular Disease
DX: I67.9 Cerebrovascular disease, unspecified (principal); R51.9 Headache, unspecified; R41.3 Other amnesia; I48.91 Unspecified atrial fibrillation; I25.10 Atherosclerotic heart disease of native coronary artery without angina pectoris; E29.1 Testicular hypofunction
CPT/HCPCS: 70450; 93306; 96372; 96374; G0463; J1071; J1650; J1956

== ENCOUNTER → 2024-06-19 | Outpatient (CLI) | payer MEDICARE ==
[~2024-06-19] MED LIST changes: +ASHW1CAP PO; +B-CO1CAP18 PO; +CHOLPOW4 PO; +COEN400C8 PO; +FAMO-161 PO; +GLUC1TAB22 PO; +LATA0.008 EACHEYE; +LEVO100T3 PO; +METO-158 PO; +MULT-1018 PO; +POM; +POM PO; +RIVA20TA PO; +SILD-60 PO; +TRIA37.587 PO
[2024-06-19 11:50] VITALS: BP 113/68; PULSE 72; RESP 16; O2SAT 94
[2024-06-19 12:11] VITALS: BP 106/63; PULSE 69; RESP 16; O2SAT 94
--- NOTE | 2024-06-19 13:36 | DVH ---
EXAM: XY CHEST TWO VIEWS ROUTINE CLINICAL HISTORY: pain COMPARISON: XY CHEST TWO VIEWS ROUTINE on DOS: 04/17/24, XY CHEST TWO VIEWS ROUTINE on DOS: 07/06/22 TECHNIQUE: Frontal and lateral view of the chest was obtained FINDINGS: Lines and Tubes: None Lungs: No focal consolidation. Pleura: No effusion. No pneumothorax. Cardiomediastinal contours: Unremarkable. Atherosclerotic vascular calcifications of the thoracic ao rta are noted. Bones: No acute osseous abnormality. IMPRESSION: No acute cardiopulmonary disease.
== END | disposition home or self-care (01) ==
LOC: Rad HDHVI 11:47
PROVIDERS: ATTEND Internal Medicine Cardiovascular Disease
DX: Z01.818 Encounter for other preprocedural examination (principal); I48.91 Unspecified atrial fibrillation; I70.0 Atherosclerosis of aorta
CPT/HCPCS: 71046; 93005; G0463

== ENCOUNTER 2024-06-22 07:26 | Day surgery (SDC) | payer MEDICARE ==
[2024-06-19 13:32] LABS: Basophils # (auto) 0.1 10 ^3/uL (0-0.2); Basophils % (auto) 0.9 % (0.0-2.0); Eosinophils # (auto) 0.2 10 ^3/uL (0-0.8); Eosinophils % (auto) 2.7 % (0.0-7.0); Hematocrit 44.4 % (41.0-53.0); Hemoglobin 14.7 g/dL (13.5-17.5); Lymphocytes # (auto) 2.1 10 ^3/uL (0.4-5.4); Lymphocytes % (auto) 27.1 % (10.0-50.0); Mean Corpuscular Hgb Conc. 33.1 g/dL (32.0-36.0); Mean Corpuscular Volume 93.6 fL (80.0-100.0); Monocytes # (auto) 1.3 10 ^3/uL (0-1.3); Monocytes % (auto) 17.2 % (0.0-12.0); Neutrophils # (auto) 4.1 10 ^3/uL (1.6-8.6); Neutrophils % (auto) 52.1 % (37.0-80.0); Platelet Count (auto) 214 10^3/uL (140-450); Red Blood Cells 4.75 10^6/uL (4.5-5.90); Red Cell Distribution Width 15.7 % (11.8-14.3); White Blood Cell 7.8 10^3/uL (4.4-10.8)
[2024-06-19 13:41] LABS: INR 1.14 (0.9-1.15); Partial Thromboplastin Time 35.3 SEC (24.5-34.5); Prothrombin Time 11.9 sec (9.3-11.8)
[2024-06-19 13:48] LABS: Chloride 102 mmol/L (98-107); Potassium 4.4 mmol/L (3.5-5.1); Sodium 136 mmol/L (136-145)
[2024-06-19 13:49] LABS: Anion Gap 3 (5-15); Calcium 9.7 mg/dL (8.7-10.4); Carbon Dioxide 31 mmol/L (20-31)
[2024-06-19 13:54] LABS: BUN/Creatinine Ratio 14.2 (10.0-20.0); Blood Urea Nitrogen 17 mg/dL (9-23); Glucose 85 mg/dL (74-106)
[~2024-06-22] VITALS: Ht 177.8 cm; Wt 68.0 kg
[2024-06-22] MEDS: MIDAZOLAM HCL 2MG/2ML 2ml VIAL (1mg/ml) IV ONE (09:15)
[2024-06-22] MEDS: fentaNYL CITRATE 100 MCG/2 ML VL IV ONE (09:15)
[2024-06-22] MEDS: LIDOCAINE VISCOUS 2% 15ML UD PO ONE (09:15)
--- NOTE | 2024-06-22 12:01 | DVHDS ---
DATE OF DISCHARGE: 06/22/2024 The patient with atrial fibrillation and spontaneous contrast in atrial appendage. However, contrast echocardiography was negative. Left atrial appendage without any thrombus, but the patient has significant spontaneous smoke noted in the left atrium. Therefore, the patient needs to be anticoagulated. Source of embolization, I believe, is atrial fibrillation. However, left and right heart catheterization should also be performed. We will continue to follow the patient. Stable at the time of discharge. DISPOSITION: Home. ACTIVITY: As instructed. DIET: Will be 2 gram sodium. The patient is to resume all his previous medications. Obed Kauffman MD SA/EDMAR TID: [id number] RECEIPT: [id number]
--- NOTE | 2024-06-22 12:03 | DVHHP ---
ADMIT DATE: 06/22/2024 HISTORY OF PRESENT ILLNESS: The patient is 84 years old with history of increasing shortness of breath, PND, orthopnea, palpitation. The patient with underlying atrial fibrillation, chronic. Rate is adequately controlled with medication. However, he is now having recurrent symptoms of TIA. The patient is now to undergo transesophageal echocardiography and left and right heart catheterization to determine if the patient has coronary artery disease since he is having some chest pain and also to rule out any cardiac source of emboli. On transthoracic echocardiogram, there was no evidence for any kind of valvular pathology. The patient, however, appears to have some spontaneous smoke in the left atrium. The RABIA will be performed to see whether the patient has any thrombus in the left atrial appendage and then shunt study will be performed to rule out any kind of right to left shunt at this time. PERTINENT MEDICAL HISTORY: Significant for osteoarthritis, hypertension, hyperlipidemia. FAMILY HISTORY: Negative. SOCIAL HISTORY: Negative. No tobacco or alcohol use. The patient is physically very active. 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 REVIEW OF SYSTEMS: He denies any fever, chills, melena, hematochezia, hematemesis, hemoptysis. No bleeding diathesis. Denies any syncopal episode. Denies any GI symptomatology such as diverticulitis, inflammatory bowel disease or irritable bowel syndrome. Denies any syncopal episode, but he has been having slurring of speech and lapses in memory. CT of the head does not reveal any CVA. MRI, however, shows possible small lacunar infarct. He is not diabetic as well. PHYSICAL EXAMINATION: VITAL SIGNS: Blood pressure is 122/84, pulse of 70 and irregular, O2 saturation 98% on room air. HEENT: Pupils are reactive. Funduscopic exam is benign. Sclerae anicteric. Extraocular muscles are intact. No adenopathy noted. NECK: No cervical adenopathy. No supraclavicular adenopathy. No JVD appreciated. PULMONARY: Clear to auscultation. CARDIOVASCULAR: Regular rate without S3, without S4. PMI is not displaced. ABDOMEN: Soft, nontender, normal bowel sounds. SKIN: Unremarkable. EXTREMITIES: Unremarkable. ASSESSMENT AND PLAN: Thus, the patient with atrial fibrillation, now recurrent transient ischemic attack. Already been anticoagulated with Xarelto. If the patient has no reason for having any kind of cardiac source of emboli, then I may have to change his anticoagulant. He may benefit from much stronger combination of therapy. We will make further recommendations after the RABIA. The patient will require left heart catheterization and therefore, left heart catheterization will also be scheduled. Obed Kauffman MD SA/ELROY TID: [id number] RECEIPT: [id number]
--- NOTE | 2024-06-22 12:13 | DVHOP ---
DATE OF SURGERY: 06/22/2024 PROCEDURE PERFORMED: Transesophageal echocardiography and conscious sedation. DESCRIPTION OF PROCEDURE: The patient was given adequate conscious sedation. Following that, an Omniplane transesophageal probe was used to intubate the patient's esophagus. Standard echo images obtained. Contrast echocardiography also performed as part of the routine to rule out any kind of shunt. RESULTS: The patient's left ventricular function was preserved with an estimated EF around 60%. No thrombus noted in the left atrial appendage. Valvular anatomy and physiology were within normal limits ____ ascending, descending and transverse aorta, no significant pathology noted. The patient has no shunts across the interatrial septum. However, the patient with extensive spontaneous contrast noted in the left atrium. At this time, no obvious source of embolization, even though the patient with spontaneous contrast that is indicative of the patient's higher risk for hypercoagulable state. We will continue to follow the patient at this time. Obed Kauffman MD SA/EDMAR/TERE TID: [id number] RECEIPT: [id number]
[2024-06-22] MEDS: TESTOSTERONE CYPIONATE 200 MG/ML 1ML VIAL IM ONE (13:45)
== END 2024-06-22 14:04 | disposition home or self-care (01) ==
LOC: CATH 07:26
PROVIDERS: ATTEND Internal Medicine Cardiovascular Disease
DX: R06.02 Shortness of breath (principal); I48.20 Chronic atrial fibrillation, unspecified; E78.5 Hyperlipidemia, unspecified; I10 Essential (primary) hypertension; Z79.01 Long term (current) use of anticoagulants; R00.2 Palpitations; R07.9 Chest pain, unspecified; M19.90 Unspecified osteoarthritis, unspecified site; Z86.73 Personal history of transient ischemic attack (TIA), and cerebral infarction without residual deficits; Z79.899 Other long term (current) drug therapy; Z98.890 Other specified postprocedural states
CPT/HCPCS: 36415; 80048; 85025; 85610; 85730; 93312; J1071; J2250; J7030; 99152

== ENCOUNTER 2024-06-27 10:55 | Day surgery (SDC) | payer MEDICARE ==
[~2024-06-27] VITALS: Ht 177.8 cm; Wt 68.0 kg
[2024-06-27] VITALS (9 sets, daily range): BP systolic 106–142; BP diastolic 55–79; PULSE 65–76; RESP 14–20; TEMP 98.1; O2SAT 93–96
[~2024-06-27 10:55] MED LIST changes: +HEPARIN IN NS 1000Units/500mL 1,500 ML ONE; +IOHEXOL 350 MG/ML 100ML IJ ONE; -[UNRECOGNIZED DRUG - OTHER]
[2024-06-27] MEDS ORDERED: ANGIOMAX 250 MG VIAL IV ONE (12:11)
[2024-06-27] MEDS ORDERED: fentaNYL CITRATE 100 MCG/2 ML VL ONE (12:11)
[2024-06-27] MEDS ORDERED: LIDOCAINE 2%HCL (LOCAL ANESTH.) INJ 20ML MDV ONE (12:12)
[2024-06-27] MEDS ORDERED: MIDAZOLAM HCL 2MG/2ML 2ml VIAL (1mg/ml) ONE (12:12)
[2024-06-27] MEDS ORDERED: diphenhdrAMINE HCL 50 MG/1 ML VL ONE (13:33)
[2024-06-27] MEDS ORDERED: FAMOTIDINE (10MG/ML) 2ML VL IV ONE (13:43)
[2024-06-27] MEDS ORDERED: methylPREDNISolone SOD SUCC 125 MG/2 ML VL ONE (13:43)
--- NOTE | 2024-06-27 14:50 | DVHDS ---
DATE OF DISCHARGE: 06/27/2024 HOSPITAL COURSE: The patient underwent successful left and right heart catheterization. [place]-Gabbi catheterization is consistent with mild pulmonary hypertension. No gradient across the mitral valve. Left heart catheterization showed global hypokinesis and estimated EF around 45% with no gradient across the tricuspid valve. At this time, the patient has mild pulmonary hypertension that needs aggressive treatment. He has diastolic dysfunction as well. We will continue to follow the patient. Stable at the time of discharge. DISPOSITION: Home. ACTIVITY: As instructed. DIET: Will be 2 gram sodium diet. Obed Kauffman MD SA/RICARDO TID: [id number] RECEIPT: [id number]
--- NOTE | 2024-06-27 15:02 | DVHHP ---
ADMIT DATE: 06/27/2024 HISTORY OF PRESENT ILLNESS: The patient with chest pain, shortness of breath and recurrent TIA. He underwent transesophageal echocardiography and bubble study was done as well. His left atrial appendage did not have any flow restrictive lesion and there was no transesophageal echocardiographic evidence for mitral regurgitation or any significant shunt across the lesion. Normal RV function as well, but the patient is now having increasing symptoms of shortness of breath, even with minimal exertion. He has got diminished left ventricular ejection fraction by echocardiography as well, and the patient's nuclear scan similarly shows EF is diminished, it is unclear etiology, it could be COVID related or age-related or small vessel disease. He is an ideal candidate for EECP if there is no treatment available for him. PHYSICAL EXAMINATION: VITAL SIGNS: Blood pressure is 134/80, pulse of 70, O2 saturation 98% on room air. HEENT: Pupils are reactive. Funduscopic exam is benign. Sclerae anicteric. Ocular muscles are intact. No AV nicking, no exudates noted. PULMONARY: Clear to auscultation. CARDIOVASCULAR: Regular rate without S3, without S4. PMI is not displaced. ABDOMEN: Soft, nontender. Normal bowel sounds. SKIN: Unremarkable. EXTREMITIES: 2+ pulses. NEUROLOGIC: The patient is intact. ASSESSMENT AND PLAN: Thus, the patient is having recurrent transient ischemic attacks. RABIA did not reveal any cardiac source of emboli. was consulted. It appears as though the patient has component of pulmonary hypertension and may have been secondary to him moving down the hill. We will continue to follow the patient. Further recommendations after the left and right heart catheterization and [place]-Gabbi readings. bOed Kauffman MD SA/RICARDO/RUTH TID: [id number] RECEIPT: [id number]
--- NOTE | 2024-06-27 15:11 | DVHOP ---
DATE OF SURGERY: 06/27/2024 PROCEDURES PERFORMED: Selective left and right coronary angiography, ventriculogram and right heart [place]-Gabbi catheterization and conscious sedation. DESCRIPTION OF PROCEDURE: The patient was prepped and draped in a sterile condition. 1% Xylocaine used to anesthetize the right groin. Using a Cook needle, the right femoral artery was engaged with Seldinger technique. A 6-Martiniquais sheath in the right femoral artery. Using a 6-Martiniquais sheath, it was introduced in the right femoral vein. Using a 6-Martiniquais balloon-tipped thermodilutional catheter, right-sided pressure tracings were obtained. Using 6-Martiniquais JL4 catheter and 6-Martiniquais JR4 catheter, selective left and right coronary angiographies were performed. Using 6-Martiniquais pigtail catheter, ventriculogram was done. There were no complications. The patient tolerated the procedure well. RESULTS: * Left main patent. * Left anterior descending artery without any flow restrictive lesion. * Circumflex without any flow restrictive lesion. * Right coronary artery without any flow restrictive lesion. * Left ventricular function, however, shows global hypokinesis, cannot rule out takotsubo because there are some features consistent with takotsubo with ejection fraction around 35%. LVEDP was 16 mmHg with no gradient across the aortic valve. * Right heart catheterization showed RA pressure of 6, RV pressure of , capillary wedge pressure of 16. Left ventricular end diastolic pressure of 16. Therefore, no gradient across the mitral valve, but the patient's PA pressure was markedly elevated at 46-48 over 16-20 mmHg. Thus, the patient with normal coronaries. LVEF is reduced at 35%. * The patient's RA pressure is normal, which is 6. RV pressure is slightly elevated systolic with a systolic pressure of 42/12 and a PA pressure of 42/16. Capillary wedge pressure of 16. At this time, the patient with mild pulmonary hypertension that needs to be addressed. Also, could be secondary to LV dysfunction of unclear etiology at this time. We will continue to follow the patient. Obed Kauffman MD SA/ELROY/ALBERTO TID: [id number] RECEIPT: [id number]
== END 2024-06-27 16:38 | disposition home or self-care (01) ==
LOC: CATH 10:55
PROVIDERS: ATTEND Internal Medicine Cardiovascular Disease
DX: R07.9 Chest pain, unspecified (principal); I27.20 Pulmonary hypertension, unspecified; G45.9 Transient cerebral ischemic attack, unspecified; R06.02 Shortness of breath; I34.0 Nonrheumatic mitral (valve) insufficiency; I50.20 Unspecified systolic (congestive) heart failure
CPT/HCPCS: 93460; C1760; C1894; J1200; J1644; J2250; J2919; J3010; J3490; J7030; Q9967; 99152

== ENCOUNTER → 2024-07-17 | Outpatient (CLI) | payer MEDICARE ==
[~2024-07-17] MED LIST changes: -HEPARIN IN NS 1000Units/500mL 1,500 ML ONE; -IOHEXOL 350 MG/ML 100ML IJ ONE
[2024-07-17 09:43] VITALS: BP 145/82; PULSE 66; RESP 18; O2SAT 97
[2024-07-17] MEDS: BUMETANIDE INJECTION 10 ML ONE (09:58)
[2024-07-17] MEDS: POTASSIUM CHL 20 Meq TABLET PO ONE ×3 (10:12→10:17)
[2024-07-17] MEDS: BUMETANIDE 2.5mg/10ml (0.25 mg/ml) INJ IV ONE (10:15)
[2024-07-17 10:50] VITALS: BP 151/77; PULSE 66; RESP 16; O2SAT 97
== END | disposition home or self-care (01) ==
LOC: CHF HDHVI 09:41
PROVIDERS: ATTEND Internal Medicine Cardiovascular Disease
DX: R60.9 Edema, unspecified (principal); E78.5 Hyperlipidemia, unspecified; I48.91 Unspecified atrial fibrillation; I11.0 Hypertensive heart disease with heart failure; I50.9 Heart failure, unspecified; M19.90 Unspecified osteoarthritis, unspecified site; Z79.899 Other long term (current) drug therapy
CPT/HCPCS: 96374; G0463

== ENCOUNTER → 2024-07-21 | Outpatient (CLI) | payer MEDICARE ==
[2024-07-21 11:00] VITALS: BP 127/62; PULSE 81; RESP 16; O2SAT 94
[2024-07-21 11:23] VITALS: BP 130/72; PULSE 77; RESP 16; O2SAT 94
== END | disposition home or self-care (01) ==
LOC: CHF HDHVI 11:04
PROVIDERS: ATTEND Internal Medicine Cardiovascular Disease
DX: R60.9 Edema, unspecified (principal); I48.91 Unspecified atrial fibrillation; I11.0 Hypertensive heart disease with heart failure; I50.9 Heart failure, unspecified; M19.90 Unspecified osteoarthritis, unspecified site; E78.5 Hyperlipidemia, unspecified; Z79.899 Other long term (current) drug therapy
CPT/HCPCS: G0463

== ENCOUNTER 2024-09-28 08:47 | Outpatient (CLI) | payer MEDICARE ==
[~2024-09-28] VITALS: Ht 175.3 cm; Wt 65.8 kg
--- NOTE | 2024-10-11 13:23 | DVHSR ---
APPROVED REPORT Indication Fatigue Atrial Fibrillation Hypertension/HCVD Congestive Heart Failure Palpitations Cardiac Risk Factors Hypertension: Hypercholesterolemia Procedure The above named patient was injected with 31.1 mCi of Tc99m tagged red blood cells. Gated imaging was then performed in left anterior oblique projections. Findings Calculated LV Ejection Fraction is 66%. Impression EF >60%
== END 2024-09-28 17:00 | disposition home or self-care (01) ==
LOC: Rad HDHVI 08:47
PROVIDERS: ATTEND Internal Medicine Cardiovascular Disease
DX: I11.0 Hypertensive heart disease with heart failure (principal); I50.33 Acute on chronic diastolic (congestive) heart failure; I48.0 Paroxysmal atrial fibrillation; I48.20 Chronic atrial fibrillation, unspecified; E78.00 Pure hypercholesterolemia, unspecified; R00.2 Palpitations
CPT/HCPCS: 78472; 93017; A9505; 96374; 96375

== ENCOUNTER → 2024-10-02 | Outpatient (CLI) | payer MEDICARE | END | disposition home or self-care (01) | LOC: Rad HDHVI 12:41 | PROVIDERS: ATTEND Internal Medicine Cardiovascular Disease | DX: I34.0 Nonrheumatic mitral (valve) insufficiency (principal); I50.33 Acute on chronic diastolic (congestive) heart failure; G45.9 Transient cerebral ischemic attack, unspecified | CPT/HCPCS: 93306 ==

== ENCOUNTER 2024-11-29 14:28 | Outpatient (CLI) | payer MEDICARE | END 2024-11-29 17:00 | disposition home or self-care (01) | LOC: Rad HDHVI 14:28 | PROVIDERS: ATTEND Internal Medicine Cardiovascular Disease | DX: I10 Essential (primary) hypertension (principal) | CPT/HCPCS: 93880 ==